=== PATIENT | female | born 1935 | race Caucasian/White ===

== ENCOUNTER 2017-02-13 01:36 | Day surgery (SDC) | payer MEDICARE ==
[~2017-02-13] VITALS: Ht 154.9 cm; Wt 60.0 kg
[2017-02-13] VITALS (35 sets, daily range): BP systolic 101–174; BP diastolic 49–95; PULSE 53–79; RESP 13–22; O2SAT 90–96
[~2017-02-13 01:36] MED LIST: ALEN70TA51 PO; AMLO5TAB2 PO; ASPI-973 PO; ATOR40TA69 PO; CARV6.252 PO; CHOL200047 PO; LEVO100T6 PO; WARF5TAB PO
--- NOTE | 2017-02-13 06:30 | NUR ---
ADMISSION NOTE FEMALE PT ADMITTED FOR ARTERIOGRAM. DISCUSSED PLAN OF CARE WITH PT AND FAMILY. SEE ADMIT AND FLOW SHEET
[2017-02-13 07:06] LABS: BASOPHILS % (AUTO) 0.8 % (0-3); EOSINOPHILS % (AUTO) 3.7 % (0-5); MONOCYTES % (AUTO) 5.5 % (4-12); Mean Corpuscular Hemoglobin 28.4 pg (27.0-35.0); Mean Corpuscular Volume 89.1 fL (81-100); NEUTROPHILS % (AUTO) 65.3 % (40-74); Platelet Count 242 bil/L (150-400)
[2017-02-13 07:21] LABS: INR 1.04 ratio
[2017-02-13] MEDS ORDERED: WARF2TAB7 PO (07:36)
[2017-02-13] MEDS ORDERED: Heparin 5,000 Units/500 mL NS Premix IV ONE ×2 (07:45→09:12)
[2017-02-13] MEDS ORDERED: Heparin 1,000 Unit/mL 10 mL Inj ONE (07:45)
[2017-02-13] MEDS ORDERED: fentaNYL-PF 50 mCg/mL 2 mL Inj ONE (08:32)
[2017-02-13] MEDS ORDERED: Heparin 1,000 Units/500 mL NS Premix IV ONE (10:01)
[2017-02-13] MEDS ORDERED: Abciximab Bolus 2 mg/mL 5 mL Inj ONE (10:16)
--- NOTE | 2017-02-13 10:27 | NUR ---
POST PROCEDURE NOTE RETURNED FROM [employer]. SHEATH IN LEFT GROIN . SEE FLOW SHEET
--- NOTE | 2017-02-13 19:24 | NUR ---
[facility] Care assumed at 1600. Report from Sasha Bauman RN. No bleeding or hematoma at left groin puncture/manual hold. Pedal pulse present by doppler. Bedrest post sheath pull x 4 hours. Denies pain. Daley removed. prior to discharge. Patient taking PO and ambulatory. Discharge instructions reviewed with patient and daughter, written information given and questions answered.
--- NOTE | 2017-02-13 22:48 | CS94 ---
[address] [address] DIAGNOSTIC CARDIAC CATHETERIZATION PATIENT: MARTHA FORMAN : 1935 MR#: [id number] ADMIT: 02/13/2017 JOB ID: [id number] SERVICE DATE: 02/13/2017 PROCEDURES PERFORMED: 1. Abdominal aortography with bilateral iliac runoff and runoff down to the level of the foot. 2. Attempted percutaneous intervention of an occluded right superficial femoral artery 3. Angiography with injection at the level of the right common femoral artery 4. Angiography with injection at the level of the distal right superficial femoral artery INDICATIONS: An 81-year-old woman with a history of wounds affecting the right foot, fortunately, now healed but with lifestyle limiting claudication symptoms. She presents for further assessment and possible intervention. DESCRIPTION OF PROCEDURE: Informed consent was obtained. Patient brought to the catheterization laboratory. Bilateral groins were prepped and draped in usual sterile fashion. The left femoral artery was anesthetized with lidocaine using micropuncture kit and modified Seldinger technique, access was obtained and a 4-Niuean sheath was advanced. Next, a 4-Niuean pigtail catheter was advanced into the distal aorta. Angiography was performed with runoff bilaterally. Given findings of an occluded right superficial femoral artery, attempted interventions were planned. Initially, a 4-Niuean ALLAN catheter was used to go around the horn and focused angiographic views were obtained at the level of the common femoral artery on the right of the right leg. This catheter was then exchanged out with an exchange length J-tipped wire and a 5-Niuean Ankit sheath was advanced. Next, repeat angiographic views were obtained with injection at the common femoral artery to further visualize the occlusion of the superficial femoral artery. A straight stiff Abbot wire was used and this was able to enter into the occluded superficial femoral artery. This was passed through a VERT catheter. This was able to be passed down to the level of the distal superficial femoral artery and injection was performed and this revealed that although a dissection was present, the catheter was in fact very close to the true lumen. Unfortunately, despite multiple attempts, the wire was not able to be passed into the true lumen and, based upon the time of the procedure and concerns about causing extension of dissection, the intervention was abandoned at that point. There were no complications. FINDINGS: Abdominal aortic: There is an area of mild narrowing, and no evidence for aortic aneurysm appreciated in the visualized segments. Left common iliac artery: This has diffuse disease but no obstructive lesions. The visualized segments of the internal iliac artery on the left show no evidence of obstructive disease. Common femoral artery in the left shows no evidence of obstructive disease. The profunda is widely patent. The superficial femoral artery has diffuse disease throughout its course, but no high-grade focal stenoses appreciated. The vessel continues down to the level of the popliteal to the tibioperoneal trunk. The anterior tibial is not visualized and may be occluded. The peroneal artery does appear to extend down to the level of the foot. The posterior tibial artery appears potentially occluded. On the right side, the superficial femoral artery is occluded at its proximal segment. The profunda artery is open with some distal stenoses appreciated in the range of 60% to 70%. The superficial femoral artery reconstitutes at the level of the adductor canal. The continued runoff shows that there is a patent posterior tibial and tibioperoneal trunk. The anterior tibial artery appears potentially occluded. The peroneal artery is open and the posterior tibial artery may in fact be occluded as well. As noted, a wire was successfully passed. The catheter was brought down to the level of the adductor canal. An injection was performed at that level and although a dissection was present, the true lumen of the vessel was also appreciated, however, we were not able to advance into the true lumen and, again, given concerns about affecting distal run-off, the case was abandoned at this juncture IMPRESSION: 1. Angiography of the visualized segments of the abdominal aorta showing no evidence for aneurysm. There is some mild stenosis. 2. On the left side, there is no evidence for significant disease affecting the iliac arteries or common femoral artery. 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 3. The right iliacs have no evidence of obstructive disease. 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 A wire was successfully advanced into this vessel and the catheter was able to be advanced down to the level of the distal superficial femoral artery, however, it was in a dissection plane and, unfortunately, wires could not be advanced into the true lumen. [facility]
== END 2017-02-13 23:59 | disposition home or self-care (01) ==
LOC: SOUO 01:36
PROVIDERS: ATTEND Internal Medicine
DX: I70.211 Atherosclerosis of native arteries of extremities with intermittent claudication, right leg (principal); Z53.8 Procedure and treatment not carried out for other reasons; I70.202 Unspecified atherosclerosis of native arteries of extremities, left leg; E78.5 Hyperlipidemia, unspecified; I10 Essential (primary) hypertension; I71.4 Abdominal aortic aneurysm, without rupture; E03.9 Hypothyroidism, unspecified; F17.210 Nicotine dependence, cigarettes, uncomplicated; Z79.82 Long term (current) use of aspirin; Z79.01 Long term (current) use of anticoagulants
CPT/HCPCS: 36415; 37224; 75716; 80048; 85025; 85049; 85610; 99152; 99153; C1769; J0130; J0131; J1200; J1644; J2060; J2250; J3010; Q9967